=== PATIENT | female | born 1970 | race Caucasian/White ===

== ENCOUNTER 2020-05-25 06:38 | Outpatient (CLI) | payer BC | END 2020-05-25 23:59 | disposition home or self-care (01) | LOC: LAB 06:38 | PROVIDERS: ATTEND Internal Medicine Gastroenterology | DX: Z01.812 Encounter for preprocedural laboratory examination (principal); Z20.822 Contact with and (suspected) exposure to COVID-19; Z12.11 Encounter for screening for malignant neoplasm of colon ==

== ENCOUNTER 2020-05-26 09:37 | Outpatient (CLI) | payer BC, OTHER ==
[2020-05-26 10:11] LABS: BASOPHILS % (AUTO) 0.8 % (0.0-2.0); EOSINOPHILS # (AUTO) 0.1 K/uL (0.0-0.7); EOSINOPHILS % (AUTO) 0.9 % (0.0-7.0); HEMATOCRIT 42.1 % (31.2-41.9); HEMOGLOBIN 14.2 g/dL (10.9-14.3); LYMPHOCYTES # (AUTO) 1.6 K/uL (20.0-40.0); LYMPHOCYTES % (AUTO) 27.5 % (20.5-51.5); MEAN CORPUSCULAR HEMOGLOBIN 31.9 uug (24.7-32.8); MEAN CORPUSCULAR HGB CONC 34 g/dL (32.3-35.6); MEAN CORPUSCULAR VOLUME 94.4 fL (75.5-95.3); MONOCYTES # (AUTO) 0.4 K/uL (2.0-10.0); MONOCYTES % (AUTO) 7.1 % (0.0-11.0); NEUTROPHILS # (AUTO) 3.7 K/uL (1.8-8.9); NEUTROPHILS % (AUTO) 63.7 % (38.5-71.5); PLATELET COUNT (AUTO) 193 K/uL (179-408); RED BLOOD CELL COUNT(AUTO) 4.46 MIL/uL (3.63-4.92); WHITE BLOOD COUNT (AUTO) 5.8 K/uL (3.8-11.8)
[2020-05-26 10:31] LABS: THYROID STIMULATING HORMONE 1.195 mIU/mL (0.358-3.740)
[2020-05-26 11:43] LABS: BILIRUBIN,TOTAL 0.4 mg/dL (0.2-1.0); CREATININE 0.6 mg/dL (0.6-1.3); POTASSIUM 4.2 mmol/L (3.5-5.1); TOTAL PROTEIN, SERUM 7.1 g/dL (6.4-8.2)
== END 2020-05-26 23:59 | disposition home or self-care (01) ==
LOC: LAB 09:37
PROVIDERS: ATTEND Family Medicine
DX: C65.9 Malignant neoplasm of unspecified renal pelvis (principal); K21.9 Gastro-esophageal reflux disease without esophagitis; D25.1 Intramural leiomyoma of uterus; N85.4 Malposition of uterus; N92.6 Irregular menstruation, unspecified
CPT/HCPCS: 76856; 82306; 82670; 83001; 83002; 84146; 84443; 85025; 86038; 87086

== ENCOUNTER 2020-05-27 12:19 | Day surgery (SDC) | payer BC, OTHER ==
[2020-05-27] MEDS ORDERED: LIDOCAINE-MPF 2% 5 ML VIAL IJ ONE (12:20)
[2020-05-27] MEDS ORDERED: IRR STERIL WATER FOR IRR 1000 ML BOTTLE IR ONE (12:20)
[2020-05-27] MEDS ORDERED: PROPOFOL 200 MG/20 ML BOTTLE IV ONE (12:20)
[2020-05-27] MEDS ORDERED: SIMETHICONE 40 MG/0.6 ML, 30ML BOTTLE MC ONE (12:20)
[2020-05-27 13:06] LABS: *BILIRUBIN,URIN NEGATIVE (NEGATIVE); *CLARITY,URINE SLIGHTLY CLOUDY (CLEAR); *COLOR,URINE YELLOW (YELLOW); *KETONES,URINE 2+ (NEGATIVE); *UROBILINOGEN,URINE 0.2 E.U./dl (NORMAL); LEUKOCYTE ESTERASE ,URINE TRACE (NEGATIVE); NITRITE, URINE NEGATIVE (NEGATIVE); PH,URINE 5.5 (5.0-8.0); UGLUCOSE NEGATIVE (NEGATIVE)
[2020-05-27 13:07] LABS: *BLOOD, URINE TRACE (NEGATIVE); *URINE HCG, QUAL NEG (NEGATIVE)
[2020-05-27 13:10] LABS: CARBON DIOXIDE 23 mmol/L (21-32); CHLORIDE 103 mmol/L (98-107); CREATININE 0.5 mg/dL (0.6-1.3); GLUCOSE 89 mg/dL (74-106); POTASSIUM 5.2 mmol/L (3.5-5.1); UREA NITROGEN, BLOOD 9 mg/dL (7-18)
[2020-05-27 13:12] LABS: BASOPHILS # (AUTO) 0.1 K/uL (0.0-8.0); EOSINOPHILS # (AUTO) 0.1 K/uL (0.0-0.7); EOSINOPHILS % (AUTO) 1.7 % (0.0-7.0); HEMATOCRIT 47.3 % (31.2-41.9); HEMOGLOBIN 16.1 g/dL (10.9-14.3); LYMPHOCYTES # (AUTO) 2.2 K/uL (20.0-40.0); LYMPHOCYTES % (AUTO) 29.5 % (20.5-51.5); MEAN CORPUSCULAR HEMOGLOBIN 31.9 uug (24.7-32.8); MEAN CORPUSCULAR HGB CONC 34 g/dL (32.3-35.6); MEAN CORPUSCULAR VOLUME 93.8 fL (75.5-95.3); MONOCYTES # (AUTO) 0.4 K/uL (2.0-10.0); MONOCYTES % (AUTO) 5.3 % (0.0-11.0); NEUTROPHILS # (AUTO) 4.6 K/uL (1.8-8.9); NEUTROPHILS % (AUTO) 62.5 % (38.5-71.5); PLATELET COUNT (AUTO) 210 K/uL (179-408); RED BLOOD CELL COUNT(AUTO) 5.04 MIL/uL (3.63-4.92); WHITE BLOOD COUNT (AUTO) 7.3 K/uL (3.8-11.8)
[2020-05-27 13:21] LABS: ALANINE AMINOTRANSFERASE 24 U/L (14-59); ALKALINE PHOSPHATASE 37 U/L (50-136); ASPARTATE AMINOTRANSFERASE 32 U/L (15-37); TOTAL PROTEIN, SERUM 7.8 g/dL (6.4-8.2)
[2020-05-27 15:15] LABS: BACTERIA,URINE FEW /HPF (NONE SEEN); SQUAMOUS EPITHELIAL CELL,UR FEW /HPF (NONE SEEN)
== END 2020-05-27 16:00 | disposition home or self-care (01) ==
LOC: DS 12:19
PROVIDERS: ATTEND Internal Medicine Gastroenterology
DX: Z12.11 Encounter for screening for malignant neoplasm of colon (principal); R10.13 Epigastric pain; K64.8 Other hemorrhoids; K44.9 Diaphragmatic hernia without obstruction or gangrene; K31.89 Other diseases of stomach and duodenum; K21.00 Gastro-esophageal reflux disease with esophagitis, without bleeding; K29.70 Gastritis, unspecified, without bleeding; E66.9 Obesity, unspecified; Z80.0 Family history of malignant neoplasm of digestive organs; Z79.899 Other long term (current) drug therapy; Z98.890 Other specified postprocedural states
CPT/HCPCS: 36415; 43239; 45378; 80053; 81001; 84703; 85025; 85730; J3490; J7120; 88313-TC; 88342; A4217; A4663

== ENCOUNTER 2020-06-16 09:20 | Outpatient (CLI) | payer BC, OTHER ==
[2020-06-16 10:11] LABS: *BILIRUBIN,URIN NEGATIVE (NEGATIVE); *BLOOD, URINE NEGATIVE (NEGATIVE); *CLARITY,URINE CLEAR (CLEAR); *COLOR,URINE YELLOW (YELLOW); *KETONES,URINE NEGATIVE (NEGATIVE); *UROBILINOGEN,URINE 0.2 E.U./dl (NORMAL); LEUKOCYTE ESTERASE ,URINE TRACE (NEGATIVE); NITRITE, URINE NEGATIVE (NEGATIVE); PH,URINE 7.5 (5.0-8.0); UGLUCOSE NEGATIVE (NEGATIVE)
[2020-06-16 12:23] LABS: BACTERIA,URINE NONE SEEN /HPF (NONE SEEN); RBC,URINE 0-3 /HPF (0-3); SQUAMOUS EPITHELIAL CELL,UR FEW /HPF (NONE SEEN); WBC,URINE 0-3 /HPF (0-3)
== END 2020-06-16 23:59 | disposition home or self-care (01) ==
LOC: LAB 09:20
PROVIDERS: ATTEND Family Medicine
DX: R35.0 Frequency of micturition (principal); Z20.9 Contact with and (suspected) exposure to unspecified communicable disease
CPT/HCPCS: 86592; 87086; 87806

== ENCOUNTER 2020-06-17 09:33 | Outpatient (CLI) | payer BC, OTHER ==
[2020-06-17 10:25] LABS: BILIRUBIN,TOTAL 0.4 mg/dL (0.2-1.0); CREATININE 0.7 mg/dL (0.6-1.3); POTASSIUM 4.2 mmol/L (3.5-5.1); TOTAL PROTEIN, SERUM 6.9 g/dL (6.4-8.2)
[2020-06-17 10:26] LABS: BASOPHILS % (AUTO) 0.4 % (0.0-2.0); EOSINOPHILS # (AUTO) 0.1 K/uL (0.0-0.7); EOSINOPHILS % (AUTO) 0.8 % (0.0-7.0); HEMATOCRIT 39.6 % (31.2-41.9); HEMOGLOBIN 13.5 g/dL (10.9-14.3); LYMPHOCYTES # (AUTO) 1.4 K/uL (20.0-40.0); LYMPHOCYTES % (AUTO) 17.7 % (20.5-51.5); MEAN CORPUSCULAR HEMOGLOBIN 32.3 uug (24.7-32.8); MEAN CORPUSCULAR HGB CONC 34 g/dL (32.3-35.6); MEAN CORPUSCULAR VOLUME 94.6 fL (75.5-95.3); MONOCYTES # (AUTO) 0.4 K/uL (2.0-10.0); MONOCYTES % (AUTO) 4.7 % (0.0-11.0); NEUTROPHILS # (AUTO) 5.9 K/uL (1.8-8.9); NEUTROPHILS % (AUTO) 76.4 % (38.5-71.5); PLATELET COUNT (AUTO) 169 K/uL (179-408); RED BLOOD CELL COUNT(AUTO) 4.19 MIL/uL (3.63-4.92); WHITE BLOOD COUNT (AUTO) 7.7 K/uL (3.8-11.8)
== END 2020-06-17 23:59 | disposition home or self-care (01) ==
LOC: LAB 09:33
PROVIDERS: ATTEND Family Medicine
DX: N61.0 Mastitis without abscess (principal)
CPT/HCPCS: 36415; 85025

== ENCOUNTER 2020-06-21 07:23 | Outpatient (CLI) | payer BC, OTHER ==
[2020-06-21 09:50] LABS: BASOPHILS % (AUTO) 0.4 % (0.0-2.0); EOSINOPHILS # (AUTO) 0.1 K/uL (0.0-0.7); HEMATOCRIT 40.8 % (31.2-41.9); HEMOGLOBIN 13.9 g/dL (10.9-14.3); LYMPHOCYTES # (AUTO) 1.4 K/uL (20.0-40.0); LYMPHOCYTES % (AUTO) 19.2 % (20.5-51.5); MEAN CORPUSCULAR HEMOGLOBIN 32.5 uug (24.7-32.8); MEAN CORPUSCULAR HGB CONC 34 g/dL (32.3-35.6); MEAN CORPUSCULAR VOLUME 94.9 fL (75.5-95.3); MONOCYTES # (AUTO) 0.3 K/uL (2.0-10.0); MONOCYTES % (AUTO) 4.4 % (0.0-11.0); NEUTROPHILS # (AUTO) 5.5 K/uL (1.8-8.9); PLATELET COUNT (AUTO) 188 K/uL (179-408); RED BLOOD CELL COUNT(AUTO) 4.29 MIL/uL (3.63-4.92); WHITE BLOOD COUNT (AUTO) 7.4 K/uL (3.8-11.8)
== END 2020-06-21 23:59 | disposition home or self-care (01) ==
LOC: LAB 07:23
PROVIDERS: ATTEND Family Medicine
DX: N61.0 Mastitis without abscess (principal); R79.89 Other specified abnormal findings of blood chemistry
CPT/HCPCS: 36415; 85025

== ENCOUNTER 2020-06-22 11:07 | Outpatient (CLI) | payer BC, OTHER | END 2020-06-22 23:59 | disposition home or self-care (01) | LOC: LAB 11:07 | PROVIDERS: ATTEND Family Medicine | DX: Z20.9 Contact with and (suspected) exposure to unspecified communicable disease (principal) | CPT/HCPCS: 87591 ==

== ENCOUNTER 2020-06-30 10:46 | Outpatient (CLI) | payer BC, OTHER ==
[2020-06-30 11:12] LABS: BASOPHILS % (AUTO) 0.7 % (0.0-2.0); EOSINOPHILS # (AUTO) 0.1 K/uL (0.0-0.7); EOSINOPHILS % (AUTO) 1.1 % (0.0-7.0); HEMATOCRIT 40.4 % (31.2-41.9); HEMOGLOBIN 13.6 g/dL (10.9-14.3); LYMPHOCYTES # (AUTO) 2.1 K/uL (20.0-40.0); LYMPHOCYTES % (AUTO) 36.9 % (20.5-51.5); MEAN CORPUSCULAR HEMOGLOBIN 31.8 uug (24.7-32.8); MEAN CORPUSCULAR HGB CONC 34 g/dL (32.3-35.6); MEAN CORPUSCULAR VOLUME 94.3 fL (75.5-95.3); MONOCYTES # (AUTO) 0.4 K/uL (2.0-10.0); MONOCYTES % (AUTO) 6.3 % (0.0-11.0); NEUTROPHILS # (AUTO) 3.2 K/uL (1.8-8.9); PLATELET COUNT (AUTO) 208 K/uL (179-408); RED BLOOD CELL COUNT(AUTO) 4.28 MIL/uL (3.63-4.92); WHITE BLOOD COUNT (AUTO) 5.8 K/uL (3.8-11.8)
== END 2020-06-30 23:59 | disposition home or self-care (01) ==
LOC: LAB 10:46
PROVIDERS: ATTEND Family Medicine
DX: N92.0 Excessive and frequent menstruation with regular cycle (principal)
CPT/HCPCS: 36415; 85025

== ENCOUNTER 2020-08-08 09:32 | Outpatient (CLI) | payer BC, OTHER ==
[2020-08-08 10:14] LABS: *BILIRUBIN,URIN NEGATIVE (NEGATIVE); *BLOOD, URINE NEGATIVE (NEGATIVE); *CLARITY,URINE CLEAR (CLEAR); *COLOR,URINE YELLOW (YELLOW); *KETONES,URINE NEGATIVE (NEGATIVE); *UROBILINOGEN,URINE 0.2 E.U./dl (NORMAL); CARBON DIOXIDE 30 mmol/L (21-32); CHLORIDE 104 mmol/L (98-107); CREATININE 0.7 mg/dL (0.6-1.3); GLUCOSE 77 mg/dL (74-106); LEUKOCYTE ESTERASE ,URINE TRACE (NEGATIVE); NITRITE, URINE NEGATIVE (NEGATIVE); POTASSIUM 4.1 mmol/L (3.5-5.1); UGLUCOSE NEGATIVE (NEGATIVE); UREA NITROGEN, BLOOD 17 mg/dL (7-18)
[2020-08-08 10:33] LABS: BASOPHILS % (AUTO) 0.8 % (0.0-2.0); EOSINOPHILS # (AUTO) 0.1 K/uL (0.0-0.7); EOSINOPHILS % (AUTO) 1.8 % (0.0-7.0); HEMOGLOBIN 13.9 g/dL (10.9-14.3); LYMPHOCYTES # (AUTO) 1.6 K/uL (20.0-40.0); LYMPHOCYTES % (AUTO) 33.6 % (20.5-51.5); MEAN CORPUSCULAR HEMOGLOBIN 31.9 uug (24.7-32.8); MEAN CORPUSCULAR HGB CONC 34 g/dL (32.3-35.6); MEAN CORPUSCULAR VOLUME 93.9 fL (75.5-95.3); MONOCYTES # (AUTO) 0.4 K/uL (2.0-10.0); MONOCYTES % (AUTO) 8.2 % (0.0-11.0); NEUTROPHILS # (AUTO) 2.6 K/uL (1.8-8.9); NEUTROPHILS % (AUTO) 55.6 % (38.5-71.5); PLATELET COUNT (AUTO) 191 K/uL (179-408); RED BLOOD CELL COUNT(AUTO) 4.36 MIL/uL (3.63-4.92); WHITE BLOOD COUNT (AUTO) 4.7 K/uL (3.8-11.8)
[2020-08-08 15:04] LABS: RBC,URINE 0-3 /HPF (0-3)
[2020-08-08 15:05] LABS: BACTERIA,URINE NONE SEEN /HPF (NONE SEEN); SQUAMOUS EPITHELIAL CELL,UR NONE SEEN /HPF (NONE SEEN); WBC,URINE 0-3 /HPF (0-3)
== END 2020-08-08 23:59 | disposition home or self-care (01) ==
LOC: LAB 09:32
PROVIDERS: ATTEND Obstetrics & Gynecology
DX: Z01.818 Encounter for other preprocedural examination (principal)
CPT/HCPCS: 36415; 85025; 85610; 85730; 86850; 86900; 86901

== ENCOUNTER 2020-08-09 06:44 | Outpatient (CLI) | payer BC, OTHER ==
[2020-08-10] MEDS ORDERED: ESOM40CA PO (10:00)
== END 2020-08-09 23:59 | disposition home or self-care (01) ==
LOC: LAB 06:44
PROVIDERS: ATTEND Obstetrics & Gynecology
DX: Z01.812 Encounter for preprocedural laboratory examination (principal); Z20.822 Contact with and (suspected) exposure to COVID-19; D25.9 Leiomyoma of uterus, unspecified; N72 Inflammatory disease of cervix uteri

== ENCOUNTER 2020-08-10 06:34 | Inpatient (IN) | payer BC, OTHER ==
[~2020-08-10] VITALS: Ht 162.6 cm; Wt 97.5 kg
[~2020-08-10 06:34] MED LIST: CEFAZOLIN 1 G in PREMIXED 1 EACH IV ONE
[2020-08-10 07:03] LABS: *URINE HCG, QUAL NEG (NEGATIVE)
[2020-08-10] MEDS ORDERED: FENTANYL CITRATE 100 MCG/2 ML AMPUL ONE (08:36)
[2020-08-10] MEDS ORDERED: ONDANSETRON 4 MG/2 ML VIAL IV ONE (09:43)
[2020-08-10] MEDS ORDERED: LIDOCAINE-MPF 2% 5 ML VIAL IJ ONE (09:43)
[2020-08-10] MEDS ORDERED: GLYCOPYRROLATE 0.2 MG/ML VIAL IJ ONE (09:43)
[2020-08-10] MEDS ORDERED: VECURONIUM BROMIDE 10 MG VIAL IV ONE (09:43)
[2020-08-10] MEDS ORDERED: PROPOFOL 200 MG/20 ML BOTTLE IV ONE (09:43)
[2020-08-10] MEDS ORDERED: DEXAMETHASONE SOD PHOSPHATE 4 MG INJ IV ONE (09:43)
[2020-08-10] MEDS ORDERED: SEVOFLURANE 250 ML BOTTLE IH ONE (09:43)
[2020-08-10] MEDS ORDERED: HYDROMORPHONE 1 MG/1 ML DISP.SYRIN ONE (09:52)
[2020-08-10] MEDS ORDERED: ESOM40CA PO (10:00)
[2020-08-10] MEDS ORDERED: HYDROMORPHONE 1 MG/1 ML DISP.SYRIN IV PRN (10:00)
[2020-08-10] MEDS ORDERED: HYDROMORPHONE 2 MG/1 ML DISP.SYRIN IV PRN (10:00)
[2020-08-10] MEDS ORDERED: ONDANSETRON INJ 8 MG in IV NORMAL SALINE 50 ML IV PRN (10:00)
--- NOTE | 2020-08-10 11:00 | NUR ---
50 year old female received from recovery room via bed in stable condition.vs ae stable call light with in reach.family is at bed side, made aware for admission orders
[2020-08-10] MEDS: IV D5LR 1,000 ML IV PRN ×2 (11:10→23:04)
[2020-08-10 11:50] VITALS: BP 110/62
[2020-08-10] MEDS ORDERED: ACETAMINOPHEN 325 MG TABLET PO PRN (12:45)
[2020-08-10 15:54] VITALS: BP 111/65
[2020-08-10] MEDS: ONDANSETRON 4 MG/2 ML VIAL IV PRN ×2 (16:22→23:17)
[2020-08-10] MEDS: HYDROMORPHONE 1 MG/1 ML DISP.SYRIN IV PRN ×2 (16:56→23:10)
[2020-08-10] MEDS: PANTOPRAZOLE SODIUM 40 MG TABLET.DR PO SCH (16:58)
--- NOTE | 2020-08-10 19:30 | NUR ---
Received pt in bed, awake and verbally responsive, able to make needs known. no s/s of respiratory distress. Pain is bearable per pt. IVF infusing well on left hand. Awan draining well. Safety measures initiated, call light within reach. will continue to monitor.
[2020-08-10 20:18] VITALS: BP 120/76
[2020-08-10] MEDS: HYDROCODONE/APAP 5-325MG TABLET PO PRN (20:55)
[2020-08-10] MEDS ORDERED: MAG HYDROX/AL HYDROX/SIMETH 30 ML LIQUID UDC PO PRN (22:45)
[2020-08-11] MEDS: HYDROCODONE/APAP 5-325MG TABLET PO PRN ×2 (03:58→16:23)
[2020-08-11 04:24] VITALS: BP 113/64
[2020-08-11] MEDS: PANTOPRAZOLE SODIUM 40 MG TABLET.DR PO SCH ×2 (06:07→16:23)
--- NOTE | 2020-08-11 06:30 | NUR ---
Pt in bed, awake and verbally responsive. No s/s of respiratory distress, pain medication given as ordered. Medications tolerated well. Awan cath discontinued, with bedside commode in place. Instructed pt to call for assistance when needed. Safety measures maintained, call light within reach, all needs attended.
[2020-08-11 06:35] LABS: BASOPHILS % (AUTO) 0.2 % (0.0-2.0); EOSINOPHILS % (AUTO) 0.2 % (0.0-7.0); HEMATOCRIT 37.3 % (31.2-41.9); HEMOGLOBIN 12.5 g/dL (10.9-14.3); LYMPHOCYTES # (AUTO) 1.4 K/uL (20.0-40.0); LYMPHOCYTES % (AUTO) 15.6 % (20.5-51.5); MEAN CORPUSCULAR HEMOGLOBIN 31.4 uug (24.7-32.8); MEAN CORPUSCULAR HGB CONC 34 g/dL (32.3-35.6); MEAN CORPUSCULAR VOLUME 93.7 fL (75.5-95.3); MONOCYTES # (AUTO) 0.6 K/uL (2.0-10.0); NEUTROPHILS # (AUTO) 6.9 K/uL (1.8-8.9); PLATELET COUNT (AUTO) 161 K/uL (179-408); RED BLOOD CELL COUNT(AUTO) 3.98 MIL/uL (3.63-4.92); WHITE BLOOD COUNT (AUTO) 8.9 K/uL (3.8-11.8)
[2020-08-11] MEDS: IV D5LR 1,000 ML IV PRN (06:49)
[2020-08-11 07:14] LABS: CREATININE 0.6 mg/dL (0.6-1.3); MAGNESIUM 1.8 mg/dL (1.8-2.4); PHOSPHOROUS 3.1 mg/dL (2.5-4.9); POTASSIUM 3.6 mmol/L (3.5-5.1)
[2020-08-11] MEDS: HYDROMORPHONE 1 MG/1 ML DISP.SYRIN IV PRN ×2 (10:14→21:01)
[2020-08-11] MEDS: MAGNESIUM HYDROXIDE 30 ML LIQUID UDC PO PRN ×2 (11:07→20:58)
[2020-08-11 11:52] VITALS: BP 101/62
[2020-08-11 16:00] VITALS: BP 133/82
[2020-08-11 20:00] VITALS: BP 115/84
[2020-08-12] MEDS: HYDROCODONE/APAP 5-325MG TABLET PO PRN ×3 (01:38→20:31)
[2020-08-12 04:00] VITALS: BP 113/75
[2020-08-12 05:57] LABS: *BILIRUBIN,URIN NEGATIVE (NEGATIVE); *CLARITY,URINE CLEAR (CLEAR); *COLOR,URINE YELLOW (YELLOW); *KETONES,URINE NEGATIVE (NEGATIVE); *UROBILINOGEN,URINE 0.2 E.U./dl (NORMAL); LEUKOCYTE ESTERASE ,URINE NEGATIVE (NEGATIVE); NITRITE, URINE NEGATIVE (NEGATIVE); PH,URINE 8.5 (5.0-8.0); UGLUCOSE NEGATIVE (NEGATIVE)
[2020-08-12 06:02] LABS: *BLOOD, URINE TRACE (NEGATIVE)
[2020-08-12 06:09] LABS: BACTERIA,URINE NONE SEEN /HPF (NONE SEEN); RBC,URINE 0-3 /HPF (0-3); WBC,URINE 0-3 /HPF (0-3)
[2020-08-12 06:11] LABS: SQUAMOUS EPITHELIAL CELL,UR FEW /HPF (NONE SEEN)
[2020-08-12] MEDS: PANTOPRAZOLE SODIUM 40 MG TABLET.DR PO SCH ×2 (06:32→16:09)
--- NOTE | 2020-08-12 06:44 | NUR ---
Patient slept well. No s/s of acute distress noted a this time. Patient c/o no bowel movement and unable to pass gas during the day. Milk of magnesia provided last night. Patient c/o abdominal pain, medication provided per orders. C/o burning sensation when urinating this morning, urine analysis sent to lab. Patient walking around the unit this morning stating "I was able to pass gas and I am feeling better." Safety measures in place. All needs were met and attended to. Will endorse to oncoming shift.
--- NOTE | 2020-08-12 07:30 | NUR ---
Received patient sitting in chair. On room air. No signs of acute distress. Patient with Left hand 20gauge heplock. Patient denies of any pain or discomfort at this time. Will continue to monitor.
[2020-08-12 11:59] VITALS: BP 114/75
[2020-08-12] MEDS: MAGNESIUM HYDROXIDE 30 ML LIQUID UDC PO PRN (14:58)
[2020-08-12 16:00] VITALS: BP 101/68
--- NOTE | 2020-08-12 19:10 | NUR ---
Received pt sitting in bed, verbally responsive, able to make needs known. No s/s of respiratory distress, verbalized pain is bearable. Safety measures initiated, call light within reach, will continue to monitor.
[2020-08-12 20:25] VITALS: BP 128/83
[2020-08-13 04:30] VITALS: BP 100/59
[2020-08-13] MEDS: PANTOPRAZOLE SODIUM 40 MG TABLET.DR PO SCH (06:01)
--- NOTE | 2020-08-13 06:30 | NUR ---
Pt in bed, asleep, easily arousable to name, able to make needs known, no s/s of respiratory distress, denies any pain or discomfort. Safety measures maintained at all times, call light within reach, all needs attended. For DC today.
--- NOTE | 2020-08-13 12:10 | NUR ---
D/C TO HOME VIA PRIVATE RIDE. D/C INSTRUCTIONS DISCUSSED. STATES SHE HAS AN APPT ON SUNDAY OF NEXT WEEK FOR HER F/U WITH SURGEON. STATES SHE HAS RECEIVED HER PRESCRIPTIONS FROM THE MD. VERBALIZED UNDERSTANDING OF ALL D/C INSTRUCTIONS. REFUSED SURGICAL D/C PICS. SHE SAYS SHE WILL LET HER DOC LOOK AT IT DOES NOT WANT TO REMOVE HER DRSG. TAKEN TO CAR BY MASTIC MAN VIA W/C
== END 2020-08-13 11:15 | disposition home or self-care (01) | DRG 743 ==
LOC: DS 06:34 → MEDSURG3 11:01
PROVIDERS: ADMIT Internal Medicine; ATTEND Internal Medicine
PROC: 0UT90ZZ Resection of Uterus, Open Approach (ICD-10-PCS; principal; 2020-08-10)
PROC: 0UB20ZZ Excision of Bilateral Ovaries, Open Approach (ICD-10-PCS; 2020-08-10)
PROC: 0UB70ZZ Excision of Bilateral Fallopian Tubes, Open Approach (ICD-10-PCS; 2020-08-10)
DX: D25.1 Intramural leiomyoma of uterus (principal); E78.5 Hyperlipidemia, unspecified; E66.9 Obesity, unspecified; Z87.891 Personal history of nicotine dependence; Z90.710 Acquired absence of both cervix and uterus; Z68.36 Body mass index [BMI] 36.0-36.9, adult; K21.9 Gastro-esophageal reflux disease without esophagitis; K44.9 Diaphragmatic hernia without obstruction or gangrene; R03.1 Nonspecific low blood-pressure reading
CPT/HCPCS: 36415; 83735; 84100; 84703; 85025; A4649; G0378; J0690; J1100; J1170; J2405; J3010; J3490

== ENCOUNTER 2020-08-22 19:09 | Emergency (ER) | payer BC, OTHER ==
[~2020-08-22] VITALS: Ht 162.6 cm; Wt 93.0 kg
[~2020-08-22 19:09] MED LIST changes: -CEFAZOLIN 1 G in PREMIXED 1 EACH IV ONE; +ESOM40CA PO
--- NOTE | 2020-08-22 19:20 | NUR ---
Dr. Wallace at bedside for MSE.
[2020-08-22 19:35] LABS: *BILIRUBIN,URIN NEGATIVE (NEGATIVE); *BLOOD, URINE 2+ (NEGATIVE); *CLARITY,URINE CLEAR (CLEAR); *COLOR,URINE DARK YELLOW (YELLOW); *KETONES,URINE NEGATIVE (NEGATIVE); *UROBILINOGEN,URINE 0.2 E.U./dl (NORMAL); LEUKOCYTE ESTERASE ,URINE TRACE (NEGATIVE); NITRITE, URINE NEGATIVE (NEGATIVE); PH,URINE 5.5 (5.0-8.0); UGLUCOSE NEGATIVE (NEGATIVE)
[2020-08-22 19:52] LABS: BACTERIA,URINE NONE SEEN /HPF (NONE SEEN); SQUAMOUS EPITHELIAL CELL,UR FEW /HPF (NONE SEEN)
[2020-08-22] MEDS ORDERED: NITROFURANTOIN/NITROFURAN MAC 100 MG CAPSULE PO ONE ×2 (20:11→20:15)
[2020-08-22] MEDS ORDERED: NITR100C6 PO (20:17)
[2020-08-22] MEDS ORDERED: PHEN-705 PO (20:17)
--- NOTE | 2020-08-22 20:21 | NUR ---
Patient discharged to home in stable condition. Written and verbal after care instructions given. Patient verbalizes understanding of instructions. Stressed follow up or return to ER for worsening s/s. Patient out of ER with steady gait, no acute signs of distress, VSS, all belongings taken, provided with a copy of lab results.
[2020-08-22 20:22] VITALS: BP 134/77
== END 2020-08-22 20:22 | disposition home or self-care (01) ==
LOC: ER 19:10
DX: N30.91 Cystitis, unspecified with hematuria (principal); F17.211 Nicotine dependence, cigarettes, in remission
CPT/HCPCS: 87086; A4663

== ENCOUNTER 2020-12-30 10:48 | Outpatient (CLI) | payer BC, OTHER ==
[~2020-12-30 10:48] MED LIST changes: +NITR100C6 PO; +PHEN-705 PO
[2020-12-30 11:11] LABS: *BILIRUBIN,URIN NEGATIVE (NEGATIVE); *BLOOD, URINE NEGATIVE (NEGATIVE); *COLOR,URINE YELLOW (YELLOW); *KETONES,URINE NEGATIVE (NEGATIVE); *UROBILINOGEN,URINE 0.2 E.U./dl (NORMAL); LEUKOCYTE ESTERASE ,URINE 1+ (NEGATIVE); NITRITE, URINE NEGATIVE (NEGATIVE); UGLUCOSE NEGATIVE (NEGATIVE)
[2020-12-30 11:11] LABS: CREATININE 0.8 mg/dL (0.6-1.3)
[2020-12-30 14:46] LABS: *CLARITY,URINE SLIGHTLY HAZY (CLEAR)
[2020-12-30 14:47] LABS: BACTERIA,URINE FEW /HPF (NONE SEEN); SQUAMOUS EPITHELIAL CELL,UR MODERATE /HPF (NONE SEEN)
== END 2020-12-30 23:59 | disposition home or self-care (01) ==
LOC: LAB 10:48
PROVIDERS: ATTEND Family Medicine
DX: N89.8 Other specified noninflammatory disorders of vagina (principal); R93.41 Abnormal radiologic findings on diagnostic imaging of renal pelvis, ureter, or bladder
CPT/HCPCS: 36415; 84520; 87086

== ENCOUNTER 2021-01-03 08:35 | Outpatient (CLI) | payer BC, OTHER ==
[2021-01-03] MEDS ORDERED: IOHEXOL 350 100 ML INFUS..BTL ONE (08:48)
[2021-01-03] MEDS ORDERED: SWABABLE VALVE TRANSFER SET EA MC ONE (08:48)
[2021-01-03] MEDS ORDERED: IOHEXOL 300MG/ML 100 ML INFUS..BTL ONE (08:48)
[2021-01-04] MEDS ORDERED: POLY10DR3 LEFTEYE (09:01)
== END 2021-01-03 23:59 | disposition home or self-care (01) ==
LOC: CT 08:35
PROVIDERS: ATTEND Obstetrics & Gynecology
DX: I70.0 Atherosclerosis of aorta (principal); R30.9 Painful micturition, unspecified; M47.816 Spondylosis without myelopathy or radiculopathy, lumbar region
CPT/HCPCS: 74178; Q9967 ×2

== ENCOUNTER 2021-01-04 08:25 | Emergency (ER) | payer BC, OTHER ==
[~2021-01-04] VITALS: Ht 162.6 cm; Wt 96.6 kg
[2021-01-04] MEDS ORDERED: FLUORESCEIN SODIUM 1 MG STRIP OP ONE (08:45)
[2021-01-04] MEDS ORDERED: PROPARACAINE 0.5% OPHT DROP 15 ML BOTTLE OP ONE (08:45)
[2021-01-04] MEDS ORDERED: FLUORESCEIN SODIUM 1 MG STRIP ONE (08:59)
[2021-01-04] MEDS ORDERED: TETRACAINE HCL 0.5% OPHT DROP 2 ML BOTTLE ONE (08:59)
[2021-01-04] MEDS ORDERED: POLY10DR3 LEFTEYE (09:01)
--- NOTE | 2021-01-04 09:10 | NUR ---
Patient discharged to home in stable condition. Written and verbal after care instructions given. Patient verbalizes understanding of instructions. Stressed follow up or return to ER for worsening s/s.
== END 2021-01-04 09:11 | disposition home or self-care (01) ==
LOC: ER 08:25
DX: S05.02XA Injury of conjunctiva and corneal abrasion without foreign body, left eye, initial encounter (principal); X58.XXXA Exposure to other specified factors, initial encounter; Y92.89 Other specified places as the place of occurrence of the external cause
CPT/HCPCS: A4663

== ENCOUNTER 2021-05-17 07:56 | Outpatient (CLI) | payer BC, OTHER ==
[~2021-05-17 07:56] MED LIST changes: +POLY10DR3 LEFTEYE
== END 2021-05-17 23:59 | disposition home or self-care (01) ==
LOC: XRAY 07:56
PROVIDERS: ATTEND Family Medicine
DX: M51.35 Other intervertebral disc degeneration, thoracolumbar region (principal); M43.8X6 Other specified deforming dorsopathies, lumbar region
CPT/HCPCS: 72110

== ENCOUNTER 2021-06-06 11:00 | Outpatient (CLI) | payer BC, OTHER | END 2021-06-06 23:59 | disposition home or self-care (01) | LOC: US 11:00 | PROVIDERS: ATTEND Family Medicine | DX: M79.604 Pain in right leg (principal); M79.605 Pain in left leg; R05.9 Cough, unspecified | CPT/HCPCS: 71046 ==